=== PATIENT | female | born 1960 | race Caucasian/White ===

== ENCOUNTER 2024-07-11 14:18 | Outpatient (CLI) | payer BC | END 2024-07-11 14:19 | disposition home or self-care (01) | LOC: CSHULT 14:18 | PROVIDERS: ATTEND Family Medicine | DX: M79.604 Pain in right leg (principal); M79.605 Pain in left leg | CPT/HCPCS: 93970 ==

== ENCOUNTER 2025-02-27 09:45 | Outpatient (CLI) | payer BC ==
[2025-02-27 11:25] LABS: Estimated GFR - POC 63.0
[2025-02-27] MEDS ORDERED: Iopamidol 300 61% 100 ML VIAL FS ONE (13:19)
== END 2025-02-27 09:46 | disposition home or self-care (01) ==
LOC: CSHCT 09:45
PROVIDERS: ATTEND Physician Assistant Medical
DX: R10.32 Left lower quadrant pain (principal); R11.0 Nausea; M54.9 Dorsalgia, unspecified; K92.1 Melena; K44.9 Diaphragmatic hernia without obstruction or gangrene
CPT/HCPCS: 36415; 74177; 82565; Q9967